=== PATIENT | male | born 1950 | race Caucasian/White ===

== ENCOUNTER 2019-05-12 19:50 | Emergency (ER) | payer MEDICARE, SELFPAY ==
[2019-05-12 19:51] VITALS: BP 180/84; PULSE 79; RESP 18; TEMP 36.9; O2SAT 98; BMI 30.1
--- NOTE | 2019-05-12 19:51 | XR_ITS ---
WS: [id number] Right ankle, 2 views, 05/12/2019 Clinical Data: injury Comparison: None. Findings: There is a bimalleolar fracture. There is lateral dislocation of the talus from the tibia. There is n o significant soft tissue swelling. The oblique fracture of the right distal fibula extends from the distal fibula to the level of the ankle mortise. There is an avulsion fracture of the medial malleolu s. XR/XR ankle RT 2V 10322 Impression: Dislocated bimalleolar fracture of the right ankle.
--- NOTE | 2019-05-12 19:51 | W.ED.LOWEXIN ---
HPI - Extremity Injury (Lower) General: Chief Complaint: Extremity Injury, Lower Stated Complaint: POSSIBLE BROKEN ANKLE Time Seen by Provider: 05/12/19 19:51 Source: patient Mode of arrival: ambulatory Limitations: no limitations History of Present Illness: HPI Narrative: Patient was stepping down off a horse and twisted his right ankle injuring it. Patient said he felt a pop in the ankle itself. No obvious deformity is noted. Pulses are intact to the feet. Good cap refill is noted. An abrasion is noted to the medial aspect of the anterior right ankle. Patient denies any chronic medical problems. Patient reports no routine medications. Patient denies smoking, alcohol, or drug usage. Review of Systems General: Reports: 10 or more systems reviewed and unremarkable except in HPI and below Musc: Reports: joint pain (right ankle) PFSH ED PFSH: Social History Smoking and tobacco status: never smoked Physical Exam Const: COMMON NORMALS: no apparent distress and oriented x3 GENERAL APPEARANCE: cooperative HENMT: COMMON NORMALS: normocephalic, external ears normal, EAC's normal, TM's normal bilaterally and external nose normal HEAD & SCALP: normal to inspection and normocephalic FACE & SINUS: normal facial exam NOSE: external nose normal GENERAL EAR: hearing not grossly impaired EXTERNAL EAR: Yes external ears normal EXTERNAL AUDITORY CANAL: EAC's normal TYMPANIC MEMBRANE: TM's normal bilaterally MOUTH: oral and palatal mucosa normal THROAT: posterior oropharynx normal Eye: COMMON NORMALS: PERRL and EOMs intact bilaterally PUPIL: Yes PERRL Neck/C-Spine: COMMON NORMALS: full ROM and no lymphadenopathy Lymph: LYMPHATIC: no lymphedema noted Chest: COMMONS NORMALS: inspection of chest normal and palpation of chest normal Resp: COMMON NORMALS: normal respiratory effort and clear to auscultation bilaterally AUSCULTATION: clear to auscultation bilaterally Cardio: COMMON NORMALS: regular rate and regular rhythm RATE: regular rate RHYTHM: regular rhythm GI: COMMON NORMALS: normal to inspection, nondistended, normoactive bowel sounds and non-tender : COMMON NORMALS: Yes no CVA tenderness BLADDER/KIDNEY EXAM: Yes no CVA tenderness Back/Pelvis: COMMON NORMALS: no CVA tenderness and thoracic and lumbar spine normal to inspection Extremity: NARRATIVE EXTREMITY EXAM: Mild swelling to the right ankle. An abrasion is noted to the medial aspect of the anterior right ankle area. No obvious ecchymosis at this time. Pulses are intact on the dorsalis pedis and the tibialis, no obvious deformity, prompt capillary refill and good tendon function. GENERAL: Yes edema Neuro: COMMON NORMALS: oriented x3, moves all extremities and no focal motor deficits Psych: COMMON NORMALS: mental status grossly normal and cooperative Skin: COMMON NORMALS: no rashes or lesions noted GENERAL SKIN EXAM: no rashes or lesions noted Course ED course: 2014, reviewed with who agreed with assessment of fracture on xray, recommended splint and follow-up with orthopedics in out patient. wjw 2100, splint applied by myself and nurse. PML splint, cap refill intact, xray ordered for evaluation. wjw Vital Signs: Vital signs: Vital Signs Temperature 98.5 F 05/12/19 19:51 Pulse Rate 82 05/12/19 20:00 Respiratory Rate 18 05/12/19 19:51 Blood Pressure 180/84 05/12/19 19:51 Pulse Oximetry 98 05/12/19 19:51 MDM - Extremity Injury (Lower) MDM Narrative: Medical decision making narrative: Patient comes in today with complaints of injury to the right ankle. Exam notes tenderness to the ankle with decreased range of motion due to pain. Prompt capillary refill is noted distally and good pedal pulses are noted. No pain is noted in the right knee or in the proximal lower leg. Differential diagnosis includes fracture, sprain, contusion. X-ray noted bimalleolar fracture of the right ankle. Reviewed exam with Dr. Aguilar who recommended splinting and follow-up with orthopedics. Patient was placed in a posterior, medial, lateral splint with improvement in pain and discomfort. Post splint application noted good cap refill. Patient will be placed nonweightbearing with crutches. Patient was written prescriptions for pain and case management recommendation was put in for the computer follow-up. Patient reports understanding of care plan and need for follow-up. Discharge Plan Discharge Patient Disposition: Home, Self-Care Clinical Impression: Ankle fracture Qualifiers: Encounter type: initial encounter Fracture type: closed Laterality: right Qualified Code(s): S82.891A - Other fracture of right lower leg, initial encounter for closed fracture Condition: Stable Prescriptions: New hydrocodone-acetaminophen 5-325 mg tablet 1 tab PO Q6H PRN (Reason: pain (scale score 7-10)) Qty: 20 RF: 0 No Action No Known Home Medications RF: 0 Discharge Orders: Discharge Order (Routine); Ordered 05/12/19 Ordered By: David Isaac Discharge Diet: Usual diet Discharge Activity: Increase activity as tolerated Patient Instructions: Ankle Fracture (ED) Activity Restrictions/Additional Instructions: No weight bearing to extremity Use crutches for ambulation Use acetaminophen and ibuprofen as needed to control pain Case management will contact you with follow-up appointment for orthopedics Return to ER for uncontrolled pain, fever or new concerns Follow-up with primary care in one week if needed Coding Level of Care Code ED Public Information Coordinator for [place] Fwd Exam Comprehensive
[2019-05-12 20:00] VITALS: PULSE 82
[2019-05-12] MEDS: HYDROcodone-acetaminophen 7.5-325 mg Tablet 1 TAB PO (20:16)
--- NOTE | 2019-05-12 21:09 | XR_ITS ---
WS: [id number] Right ankle, 2 views, 05/12/2019 2112 hours, Clinical Data: post splint application Comparison: Right ankle, 05/12/2019, 2019 hours. Findings: A fiberglass splint has been placed about the right ankle. The dislocated bimalleolar fracture is sti ll noted. The talus remains dislocated laterally from the tibia. XR/XR ankle RT 2V 48435 Impression: Splinting of bimalleolar fracture of the right ankle.
[2019-05-12 22:16] VITALS: BP 136/84; PULSE 110; RESP 18; O2SAT 96
--- NOTE | 2019-05-12 22:31 | PC.NURSE ---
Rn reviewed and agrees with assessment.
--- NOTE | 2019-05-13 11:04 | DCPLANNER ---
configuration manager had message to schedule a follow up appointment for patient with ortho. configuration manager called the ortho clinic, spoke with Pat, gave clinic patients information. configuration manager was told that patients information would be printed and reviewed. Clinic will call case management rn and patient with appointment information.
--- NOTE | 2019-05-17 08:00 | DCPLANNER ---
Patient has an appointment scheduled for Friday, May 17, [address] at 8:[address] Craven. Clinic will call patient with appointment information.
--- NOTE | 2019-07-05 15:46 | DCPLANNER ---
Patient did attend appointment scheduled for 05.17.19 with ortho.
== END 2019-05-12 22:16 | disposition home or self-care (01) ==
PROVIDERS: Emergency Provider Nurse Practitioner Family
DX: S82.841A Displaced bimalleolar fracture of right lower leg, initial encounter for closed fracture (principal); X50.1XXA Overexertion from prolonged static or awkward postures, initial encounter; Y93.52 Activity, horseback riding
CPT/HCPCS: 12345; 29515; 73600; 99281; 99283; E0114

== ENCOUNTER → 2019-05-17 08:42 | Outpatient (BNVA) | payer MEDICARE, SELFPAY | PROVIDERS: Referring Provider Nurse Practitioner Family; Visit Provider Specialist | DX: S82.851A Displaced trimalleolar fracture of right lower leg, initial encounter for closed fracture (principal); S92.354A Nondisplaced fracture of fifth metatarsal bone, right foot, initial encounter for closed fracture; X58.XXXA Exposure to other specified factors, initial encounter | CPT/HCPCS: 73610 ==

== ENCOUNTER 2019-05-17 12:10 | Day surgery (SDC) | payer MEDICARE, SELFPAY ==
[2019-05-17] VITALS (17 sets, daily range): BP systolic 122–180; BP diastolic 62–91; PULSE 62–84; RESP 16–22; TEMP 36.4–37.1; O2SAT 94–100; BMI 30.1
--- NOTE | 2019-05-17 | SCC_ITS ---
Procedure Done: Open reduction internal fixation right trimalleolar ankle fracture 156.7 seconds of fluoroscopic guidance, for a cumulative dose of 3.87 mGy, was provided to Dr. Craven by the radiology department. C-arm images of the RIGHT ankle were saved for the patient's permanent record. [facility]
--- NOTE | 2019-05-17 | XR_ITS ---
WS: [id number] C-ARM RADIOGRAPHS RIGHT ANKLE; 4 IMAGES HISTORY: OR PICS COMPARISON: 05/17/2019 Interval placement of plate and screws stabilizing the distal fibular fracture in good alignment. Ove rlying katy. Two stabilize a medial malleolus fracture in good alignment. Posterior avulsion fracture from the tib ia is in normal alignment. On the lateral image there is an avulsion fractures of the anterior tibial plafond. Continued mild widening of the medial ankle mortise. XR/XR ankle RT 2V 64411 IMPRESSION: 1. Status post bimalleolar orthopedic fixation with fractures now in normal al ignment. 2. Nondisplaced, nonfixated posterior malleolus fracture. 3. Anterior avulsion fracture from the tibial plafond. 4. Mild widening of the medial ankle mortise. 5. Normal alignment at the tibiotalar articulation.
--- NOTE | 2019-05-17 10:38 | P.ANESASSM_ITS ---
Pre-Anesthetic Assessment Pre-Anesthetic Assessment: Height/Weight: Height 1.78 m Proposed Procedure: Operation Date: 05/17/19 12:50 Proposed Procedures p ORIF RIGHT TRIMALLEOLAR FRACTURE Ankle 07407/S82.851A(Right) - Diamond Craven MD Social: Social History: No alcohol and No tobacco Exam: Pre-Anes Outpt Exam: alert, oriented x 3, clear to auscultation bilaterally and regular rate & rhythm Airway: Submandibular: WNL Cervical ROM: Other (limited) MP: 2 Dentition: Other (teeth ok) History/ROS: No significant history except as noted Pulmonary: Pulmonary: None reported CV/HEM: CV/HEM: CAD : : None reported Hepatic: Hepatic: None reported GI: GI: None reported Metabolic: Metabolic: Hyperlipidemia Musc/skel: Musc/skel: None reported Neuropsych: Neuropsych: None reported Anesthetic Plan: ASA status: 3E Anesthesia: Anesthesia Evaluation and General Risk of > 500 ml blood loss (7ml/kg in children): No PFSH Anesthesia PFSH: Social History Smoking and tobacco status: never smoked Alcohol intake: never Data Anesthesia CBC & Chem 7: 05/17/19 12:26 05/17/19 12:26 Cardiac Studies: 2 No Data to Display
--- NOTE | 2019-05-17 11:56 | ECG_ITS ---
Measurements Intervals [place] Rate: 64 P: 50 NE: 162 QRS: 22 QRSD: 94 T: 36 QT: 406 QTc: 420 SINUS RHYTHM POSSIBLE LEFT ATRIAL ENLARGEMENT [-0.1mV P WAVE IN V1/V2] No previous ECG available for comparison Electronically Signed On 05-17-2019 19:24:44 CDT by Ry Lynne M.D. [email or web address]
[2019-05-17] MEDS: sodium chloride 0.9% 1,000 ML 30 ML IV (12:25)
[2019-05-17] MEDS: CELEcoxib 200 mg Capsule 400 MG PO (12:32)
[2019-05-17 12:54] LABS: Basophils % 0.2 %; Eosinophils # 0.2 10^3/uL (0.0-0.8); Eosinophils % 2.4 %; Hematocrit 48.5 % (42.0-52.0); Hemoglobin 16.3 g/dL (11.7-16.6); Lymphocytes # 1.5 10^3/uL (0.8-4.8); Lymphocytes % 17.6 %; Mean Corpuscular HGB Conc 33.6 g/dL (30.0-36.0); Mean Corpuscular Hemoglobin 30.7 pg (28.0-34.0); Mean Corpuscular Volume 91.3 fL (80-94); Mean Platelet Volume 10.2 fL (7.4-10.4); Monocytes # 0.5 10^3/uL (0.2-0.9); Monocytes % 5.7 %; Neutrophils # 6.4 10^3/uL (1.8-7.7); Neutrophils % 73.5 %; Nucleated Red Blood Cells % 0 %; Platelet Count 268 10^3/cmm (130-400); Red Blood Count 5.31 10^6/uL (4.1-5.3); Red Cell Distribution Width 12.2 % (12.1-15.1); White Blood Count 8.7 10^3/uL (4.0-10.0)
[2019-05-17 13:23] LABS: Alanine Aminotransferase 36 U/L (0-41); Albumin Level 4.6 g/dL (3.5-5.2); Alkaline Phosphatase 95 IU/L (40-130); Anion Gap 18.3 (5-19); Aspartate Amino Transferase 32 U/L (0-40); Blood Urea Nitrogen 19 mg/dL (8-23); Calcium 9.9 mg/dL (8.5-10.5); Carbon Dioxide 25 mmol/L (22-29); Chloride 101 mmol/L (98-107); Globulin 2.6 g/dL (1.3-4.6); Glucose 121 mg/dL (65-115); Osmolality Calculated 288 mOsm/kg (285-295); Potassium 4.3 mmol/L (3.5-5.1); Sodium 140 mmol/L (136-145); Total Bilirubin 0.9 mg/dL (0.15-1.2); Total Protein 7.2 g/dL (6.6-8.7)
--- NOTE | 2019-05-17 14:08 | W.PM.OPSUD ---
Surgery/Procedure H&P Update DATE OF PROCEDURE: May 17, 2019 DATE H&P PERFORMED: 05/17/19 H&P UPDATE INFORMATION: I have examined patient prior to procedure, No changes to prior documentation and H&P is in [facility] EMR on date indicated PREOP DIAGNOSIS: Right trimalleolar ankle fracture PLANNED PROCEDURE: Operation Date: 05/17/19 12:50 Proposed Procedures p ORIF RIGHT TRIMALLEOLAR FRACTURE Ankle 66005/S82.851A(Right) - Diamond Craven MD
[2019-05-17] MEDS: ceFAZolin 1,000 mg SDV 1000 MG IRRIGATION (15:23)
[2019-05-17] MEDS: silvasorb gel 44.4 mL 1 APPLIC TOPICAL (16:16)
[2019-05-17] MEDS: morphine 4 mg/mL SDV 1 mL 2 MG IVP ×2 (16:54→16:57)
--- NOTE | 2019-05-17 17:12 | ANES.PROC ---
Anesthesia Procedures Procedure/Date: 05/17/19 Nerve Block ^: Nerve Block 1: Main Anesthesia: general anesthesia Time Out Performed: Yes Consent: requested by attending/covering physician, risks and benefits reviewed and patient agrees to proceed Nerve block location: popliteal (right) Anesthesia monitors applied: pulse oximetry, EKG, BP cuff and oxygen Nerve block position: lateral (Left) Anesthetic Used: ropivicaine 0.5% Amount of anesthesia used (mL): 30 Nerve Stimulator Used?: Yes Interscalene/Femoral BLK: 4 stimuplex 21 g needle used for position and inplane approach, visualize local anesthetic spread and no vascular puncture identified Injection: neg aspiration of heme Patient Tolerated Procedure: well and no complications Complications: none
--- NOTE | 2019-05-17 17:23 | SUR.PHASEI ---
6426 PT TO PACU AWAKE ALERT TALKATIVE DISTAL TOES PINK WARM CAP REFILL LESS THAN 3 SECONDS
[2019-05-17] MEDS: ondansetron 2 mg/ML SDV 2 mL 4 MG IVP (17:25)
--- NOTE | 2019-05-17 17:27 | SUR.PHASEI ---
1654 PT RATES RT ANKLE PAIN AT 7-8 PT RECENTLY RECIEVED 100 OF [place] IN OR SEE MORPHINE GIVEN PER DR COBIAN REQUEST 1657 SEE PAIN MED REPEATED PT ON LT SIDE AND PREPPED FOR RT ADDUCTOR CANNAL BLOCK ORDERED BY DR COBIAN 1700 BLOCK STARTED TIME OUT COMPLETED BY DR COBIAN AND MYSELF , OTHER RN ASSISTING ABBY 1711 BLOCK TO RT LEG COMPETED PT ALERT TALKATIVE STATES PAIN IS UNCHANGED BUT BP MUCH LOWER AND PT FACE RELAXED FACE SCALE 1
--- NOTE | 2019-05-17 17:42 | SUR.PHASEI ---
1730 PAIN MEDS NOT REPEATED PT SLEEPS IF NOT DISTURBED BP MUCH LOWER, PT FACE SCALE 1-2 PT OK WITH TAKING PO PAIN MED IN OPS REPORT AT BEDSIDE TO ABBY NUNEZ.
[2019-05-17] MEDS: HYDROcodone-acetaminophen 5-325 mg Tablet 1 TAB PO (18:50)
--- NOTE | 2019-05-17 19:53 | PM.OP ---
Operative Report Date of procedure: May 17, 2019 Pre-op Diagnosis: Right trimalleolar ankle fracture, displaced and subluxed Post-op diagnosis: same Post-op Findings: Same Procedure Done: Open reduction internal fixation right trimalleolar ankle fracture utilizing the [place] 6 hole lateral fibular plate and 2 medial cannulated screws Specimens removed/disposition: None Pathology: none sent Surgeon: Diamond Craven Wood Floor Layer: [facility] OR technicians Anesthesia: General (Intubated) Estimated blood loss (mL): 5 Tourniquet time (min): 84 (at 250 mmHg) IV fluids (mL): 1,000 Urine output (mL): 0 Urine output: No Ribeiro Complications: None Condition: stable Disposition: same day (PACU then home) Brief History: This 69-year-old gentleman was in his usual state of health when he stepped awkwardly from a halflinger horse suffering the above injury. He was seen in the emergency department. Attempted reduction was accomplished, but there was still some subluxation of the fracture. He was referred to our office and seen for the first time today with the referral being received in the office yesterday. Risks and complications of surgery were discussed with the patient. He understood and consented to proceed with the intervention as recommended. Procedure: Patient was seen in the preoperative holding area and leg was marked. Patient was brought to the operating theater and placed on the operating room table. After undergoing adequate general intubated anesthesia, the patient's right lower extremity was prepped and draped in usual fashion utilizing DuraPrep. The leg was draped free. Fluoroscopy was used throughout the surgical procedure. We did have a tourniquet high on the right lower extremity. This was elevated to 250 mmHg and total tourniquet time was 84 minutes. Tourniquet elevation followed exsanguination of the leg. A surgical pause was performed. At the time of the surgical pause we identified the site and side of surgery as well as the patient's identity and availability of equipment. We also confirmed appropriate administration of IV antibiotics. Of note, there was a very large fracture blister medially proximal to the medial malleolus. This was approximately 6 inches x 4 inches in size. This was unroofed, drained, and a Tegaderm was placed on the fracture blister base throughout the surgical procedure. At the end of the surgical procedure, we placed silver sorb and 4 x 4's over this area. Following the above, an incision was made centering over the patient's distal fibula fracture. The incision was continued proximally distally as necessary to allow access to the fracture. We were able to reduce the fracture anatomically. The [place] 6-hole lateral fibular distal plate was fitted and attached with standard technique. We used a combination of locking as well nonlocking screws. Once the plate was appropriately attached, we irrigated the wound. We then closed the wound with 2-0 Monocryl in the subcutaneous tissues, and the skin was closed with skin katy. Attention was then directed to the medial aspect of the ankle with care being taken to avoid the area of the fracture blister. Once again, we used fluoroscopy to determine the appropriate level of the incision as well as palpation over the fracture. An incision was made over the site of the fracture. We were then able to reduce the fracture. Two guidewires were placed in appropriate position as visualized in AP and lateral planes. We were then able to place cannulated screws, which were 40 mm and 50 mm in length, over the guidewires to hold the medial malleolus nicely reduced. Throughout the surgical procedure and at the conclusion of the procedure we did use fluoroscopy. Fluoroscopy was utilized to determine appropriate positioning of the plate as well as the fractures. At the conclusion we did obtain AP and lateral images demonstrating the fracture was anatomically reduced. The medial incision was closed with 2-0 Monocryl in the subcutaneous tissues. The skin was then closed with skin katy. Sterile dressing was placed consisting of Xeroform gauze, 4 x 4's, sterile soft roll and an Jaime wrap in addition to the previously noted silver sorb and 4 x 4 dressing over the traumatized skin under the fracture blister. The patient was placed in a Cam Walker boot and is to remain nonweightbearing. The procedure was well tolerated without complication. Tourniquet time was 84 minutes at 250 mmHg. The patient will be discharged home to follow-up in my office as scheduled.
== END 2019-05-17 19:22 | disposition home or self-care (01) ==
PROVIDERS: Visit Provider Specialist
PROC: (CPT 27822; principal; 2019-05-17 12:30)
DX: S82.851A Displaced trimalleolar fracture of right lower leg, initial encounter for closed fracture (principal); X50.1XXA Overexertion from prolonged static or awkward postures, initial encounter; Z82.49 Family history of ischemic heart disease and other diseases of the circulatory system; I25.10 Atherosclerotic heart disease of native coronary artery without angina pectoris; E78.5 Hyperlipidemia, unspecified; S92.354A Nondisplaced fracture of fifth metatarsal bone, right foot, initial encounter for closed fracture; X58.XXXA Exposure to other specified factors, initial encounter
CPT/HCPCS: 27822; 12345; 73600; 73610; 76000; 80053; 85025; 93005; 96365; C1713; J0131; J0360; J0690; J1100; J2001; J2270; J2405; J2704; J2710; J2795; J3010; J3490; J7030

== ENCOUNTER → 2019-05-24 11:47 | Outpatient (BNVA) | payer MEDICARE, SELFPAY | PROVIDERS: Visit Provider Specialist | DX: Z48.89 Encounter for other specified surgical aftercare (principal); S82.51XA Displaced fracture of medial malleolus of right tibia, initial encounter for closed fracture; S82.831A Other fracture of upper and lower end of right fibula, initial encounter for closed fracture; S82.201A Unspecified fracture of shaft of right tibia, initial encounter for closed fracture; X58.XXXA Exposure to other specified factors, initial encounter | CPT/HCPCS: 73610 ==

== ENCOUNTER → 2019-06-06 09:33 | Outpatient (BNVA) | payer MEDICARE, SELFPAY | PROVIDERS: Visit Provider Specialist | DX: Z48.89 Encounter for other specified surgical aftercare (principal) | CPT/HCPCS: 73610; 73630 ==

== ENCOUNTER 2019-06-07 11:05 | Day surgery (SDC) | payer MEDICARE, SELFPAY ==
[2019-06-06 15:37] VITALS: BMI 30.1
[2019-06-07] VITALS (11 sets, daily range): BP systolic 161–187; BP diastolic 81–97; PULSE 66–76; RESP 14–18; TEMP 36.6–37.3; O2SAT 90–100
--- NOTE | 2019-06-07 | SCC_ITS ---
Procedure Done: Removal of screws x2 from the lateral fibular plate with manipulation of right ankle syndesmosis and reduction. Placement of Arthrex tight rope syndesmotic anchors x2. 160.3 seconds of fluoroscopic guidance, for a cumulative dose of 4.58 mGy, was provided to Dr. Craven by the radiology department. C-arm images of the RIGHT ankle were saved for the patient's permanent record. GREG
[2019-06-07 12:01] LABS: Add Urine Microscopic? NO
[2019-06-07] MEDS: CELEcoxib 200 mg Capsule 400 MG PO (12:01)
[2019-06-07 12:04] LABS: Basophils % 0.2 %; Eosinophils # 0.2 10^3/uL (0.0-0.8); Eosinophils % 2.8 %; Hematocrit 49.4 % (42.0-52.0); Hemoglobin 16.9 g/dL (11.7-16.6); Lymphocytes # 1.8 10^3/uL (0.8-4.8); Lymphocytes % 21.7 %; Mean Corpuscular HGB Conc 34.2 g/dL (30.0-36.0); Mean Corpuscular Volume 87.7 fL (80-94); Mean Platelet Volume 10.2 fL (7.4-10.4); Monocytes # 0.4 10^3/uL (0.2-0.9); Monocytes % 5.1 %; Neutrophils # 5.8 10^3/uL (1.8-7.7); Nucleated Red Blood Cells % 0 %; Platelet Count 265 10^3/cmm (130-400); Red Blood Count 5.63 10^6/uL (4.1-5.3); White Blood Count 8.3 10^3/uL (4.0-10.0)
[2019-06-07] MEDS: sodium chloride 0.9% 1,000 ML 30 ML IV (12:07)
--- NOTE | 2019-06-07 12:11 | ANES.PREANE2 ---
Pre-Anesthetic Assessment Pre-Anesthetic Assessment: Height/Weight: Height 1.78 m Weight 95.254 kg Temp Pulse Resp BP Pulse Ox 99.2 F 67 18 164/82 97 06/07/19 11:54 06/07/19 11:54 06/07/19 11:54 06/07/19 11:54 06/07/19 11:54 Preop Diagnosis: Right syndesmotic disruption with trimalleolar ankle fracture Proposed Procedure: Operation Date: 06/07/19 13:00 Proposed Procedures p Syndosmosis Fixation with medial hardware removal with possible reinsertion of hardware of right ankle. 24226,36230 S82.851A, Z48.89(Right) - Diamond Craven MD Last intake: Intake Last Liquid Date 06/06/19 Last Liquid Time 22:00 Last Solid Date 06/06/19 Last Solid Time 18:00 Social: Social History: No alcohol and No tobacco Exam: Pre-Anes Outpt Exam: alert, oriented x 3, clear to auscultation bilaterally and regular rate & rhythm Airway: Submandibular: WNL Cervical ROM: WNL (limited) and Other (mildly limited) MP: 2 Dentition: Other (teeth ok) History/ROS: No significant history except as noted Pulmonary: Pulmonary: None reported CV/HEM: CV/HEM: CAD (CABG 2002 ) and HTN : : None reported Hepatic: Hepatic: None reported GI: GI: None reported Metabolic: Metabolic: Hyperlipidemia Musc/skel: Musc/skel: None reported Neuropsych: Neuropsych: None reported Anesthetic Plan: ASA status: 3 Anesthesia: Anesthesia Evaluation and General Risk of > 500 ml blood loss (7ml/kg in children): No Meds/Allergies Current Medications: Current Medications Generic Name Dose Route Start Last Admin Trade Name Freq PRN Reason Stop Dose Admin Sodium Chloride 1,000 mls @ 30 ml s/hr 06/07/19 07:30 06/07/19 12:07 Sodium Chloride 0.9% IV 06/08/19 07:29 30 mls/hr .Q24H CONCEPCION Administration PFSH Anesthesia PFSH: Surgical History History of surgery on upper extremity Hx of heart bypass surgery Family History Mother CAD (coronary artery disease) Denies family history of Diabetes Lung disease Hypertension Stroke Social History Smoking and tobacco status: never smoked Alcohol intake: never Data Anesthesia CBC & Chem 7: 06/07/19 11:40 Other Labs: Laboratory Results - last 48 hr 06/07/19 11:40 WBC 8.3 RBC 5.63 H Hgb 16.9 H Hct 49.4 MCV 87.7 MCH 30.0 MCHC 34.2 RDW 12.0 L Plt Count 265 MPV 10.2 Neut % (Auto) 70.0 Lymph % (Auto) 21.7 [place] % (Auto) 5.1 Eos % (Auto) 2.8 Baso % (Auto) 0.2 Neut # (Auto) 5.8 Lymph # (Auto) 1.8 [place] # (Auto) 0.4 Eos # (Auto) 0.2 Baso # (Auto) 0.0 Nucleated RBC % (auto) 0 Nucleated RBCs # 0.0 Cardiac Studies: No Data to Display
[2019-06-07 12:22] LABS: Bilirubin Urine Neg (NEGATIVE); Blood Urine Neg (Negative); Glucose Urine UA Norm (Normal); Ketones Urine Negative (Negative); Leukocyte Esterase Urine Negative (Negative); Nitrate Urine Negative (Negative); Protein Urine Neg (Negative); Urine Appearance Clear (CLEAR); Urine Color Yellow (Yellow); Urobilinogen Urine Norm (Negative)
--- NOTE | 2019-06-07 13:15 | W.PM.OPSUD ---
Surgery/Procedure H&P Update DATE OF PROCEDURE: June 07, 2019 DATE H&P PERFORMED: 06/06/19 H&P UPDATE INFORMATION: H&P is in [facility] EMR on date indicated PREOP DIAGNOSIS: Right syndesmotic disruption with trimalleolar ankle fracture PLANNED PROCEDURE: Operation Date: 06/07/19 13:00 Proposed Procedures p Syndosmosis Fixation with medial hardware removal with possible reinsertion of hardware of right ankle. 04961,76607 S82.851A, Z48.89(Right) - Diamond Craven MD
[2019-06-07] MEDS: ceFAZolin 1,000 mg SDV 1000 MG IRRIGATION (14:03)
--- NOTE | 2019-06-07 14:42 | SUR.OPER ---
29801 - Pt's Richelle updated on surgery progress and pt status.
--- NOTE | 2019-06-07 15:17 | XR_ITS ---
WS: [id number] INTRAOPERATIVE TECHNIQUE: 9 Spot fluoroscopic images for intraoperative purposes. FLUOROSCOPY TIME: 160.3 seconds seconds CLINICAL INFORMATION: OR PICS COMPARISON: None. FINDINGS: Intraoperative changes syndesmotic anterior placement across the tibial plafond. XR/XR ankle RT min 3V* [id number] IMPRESSION: Images obtained for intraoperative purposes.
[2019-06-07] MEDS: fentaNYL 50 mcg/mL INJ 2mL 100 MCG IVP (15:25)
--- NOTE | 2019-06-07 15:30 | PM.OP ---
Operative Report Date of procedure: June 07, 2019 Pre-op Diagnosis: Right syndesmotic disruption with widening following open reduction internal fixation trimalleolar ankle fracture Post-op diagnosis: same Procedure Done: Removal of screws x2 from the lateral fibular plate with manipulation of right ankle syndesmosis and reduction. Placement of Arthrex tight rope syndesmotic anchors x2. Pathology: none sent Surgeon: Diamond Craven Catering Staff Member: [facility] OR technicians Anesthesia: General (Intubated, ASA 3) Estimated blood loss (mL): 25 Tourniquet time: 0 IV fluids (mL): 1,000 Urine output: 0 mL, no Ribeiro Complications: None Findings: Widening with mortise widening which was correctable with manipulation. Medial headless screws were not removed during the surgical procedure. Condition: stable Disposition: PACU (Then discharged to home with family) Brief History: This 69-year-old gentleman presented to the office initially at the end of April. The patient underwent open reduction internal fixation of his right trimalleolar fracture on May 16, however, we were not able to place a syndesmotic tight rope secondary to significant issues with the medial aspect of the patient's ankle. There was a very large fracture blister and the skin was noted to be quite tenuous. Therefore, we expected to have to place syndesmotic fixation with plans to reevaluate the mortise upon follow-up. When the patient was seen in the office, he was found to have syndesmotic and mortise widening. Procedure: Patient was seen in the preoperative holding area and leg was marked. Patient was brought to the operating theater and placed on the operating room table. After undergoing adequate general intubated anesthesia, the patient's right lower extremity was prepped and draped in usual fashion utilizing DuraPrep. The leg was draped free. Fluoroscopy was used throughout the surgical procedure. We did have a tourniquet high on the right lower extremity, but this was not elevated. A surgical pause was performed. At the time of the surgical pause we identified the site and side of surgery as well as the patient's identity and availability of equipment. We also confirmed appropriate administration of IV antibiotics, Anceg 2g. An incision was made centering over the patient's fibular plate with location of the 2 screws which would allow us to place the syndesmotic fixation through the plate being localized via fluoroscopy. Evaluation demonstrated that we were able to reduce the syndesmosis without removal of the medial hardware. Therefore this was left in place. Standard technique was used to place 2 Arthrex tight rope wires under fluoroscopic guidance. These were placed with the syndesmotic area and mortise being held reduced. This did require small incisions medially. At the conclusion we obtained AP and lateral images demonstrating the ecchymosis was reduced. The lateral incision was closed with 2-0 Monocryl in the subcutaneous tissues followed by katy. The medial 2 small incisions were closed with just a staple. Sterile dressing was placed consisting of Exofin, Telfa, 4 x 4's, sterile soft roll and an Jamie wrap. The patient was placed into a sugar tong and posterior fiberglass splint and is to remain nonweightbearing. The procedure was well tolerated without complication. The patient will be discharged home to follow-up in my office as scheduled.
[2019-06-07] MEDS: oxyCODONE-APAP 5-325 mg Tablet 1 TAB PO (15:53)
[2019-06-07] MEDS: morphine 4 mg/mL SDV 1 mL 2 MG IVP ×2 (16:13→16:19)
--- NOTE | 2019-06-07 16:24 | SUR.PHASEI ---
1525 pt now c/o of PAIN OF 9 SEE MED GIVEN ORDERED SLOW PUSH IN PACU, 1540 PT AWAKES EASILY STATES PAIN IS BETTER THEN BACK TO SLEEP FACE SCALE 3 REPORT TO OPS PT TO OPS DRESSING D/I DISTAL TOES PINK WARM CAP REFILL LESS THAN 3 SECONDS.
== END 2019-06-07 17:15 | disposition home or self-care (01) ==
PROVIDERS: Visit Provider Specialist
PROC: (CPT 20680; principal; 2019-06-07 13:00)
PROC: (CPT 20680; 2019-06-07 13:00)
DX: S82.851A Displaced trimalleolar fracture of right lower leg, initial encounter for closed fracture (principal); X58.XXXA Exposure to other specified factors, initial encounter; Z82.49 Family history of ischemic heart disease and other diseases of the circulatory system; I25.10 Atherosclerotic heart disease of native coronary artery without angina pectoris; I10 Essential (primary) hypertension; E78.5 Hyperlipidemia, unspecified
CPT/HCPCS: 20680; 27829; 12345; 36415; 73610; 76000; 81003; 85025; 96365; 96374; 96375; J0131; J0330; J0690; J1100; J2001; J2250; J2270; J2405; J2704; J2765; J3010; J3490; J7030

== ENCOUNTER → 2019-06-23 08:12 | Outpatient (BNVA) | payer MEDICARE, SELFPAY | PROVIDERS: Visit Provider Specialist | DX: S93.431A Sprain of tibiofibular ligament of right ankle, initial encounter (principal); S82.851A Displaced trimalleolar fracture of right lower leg, initial encounter for closed fracture | CPT/HCPCS: 73610 ==

== ENCOUNTER 2019-06-23 11:54 | Outpatient (CLI) | payer MEDICARE, SELFPAY | END 2019-06-23 11:55 | disposition home or self-care (01) | LOC: SPT 11:55 | PROVIDERS: Visit Provider Specialist | DX: Z46.89 Encounter for fitting and adjustment of other specified devices (principal); S82.851D Displaced trimalleolar fracture of right lower leg, subsequent encounter for closed fracture with routine healing; X58.XXXD Exposure to other specified factors, subsequent encounter; S93.431A Sprain of tibiofibular ligament of right ankle, initial encounter; S82.851A Displaced trimalleolar fracture of right lower leg, initial encounter for closed fracture | CPT/HCPCS: 73610; L4361 ==

== ENCOUNTER → 2019-07-06 09:05 | Outpatient (BNVA) | payer MEDICARE, SELFPAY | PROVIDERS: Visit Provider Specialist | DX: S93.431A Sprain of tibiofibular ligament of right ankle, initial encounter (principal); S82.851A Displaced trimalleolar fracture of right lower leg, initial encounter for closed fracture; X58.XXXA Exposure to other specified factors, initial encounter | CPT/HCPCS: 73610 ==

== ENCOUNTER → 2019-08-03 09:30 | Outpatient (BNVA) | payer MEDICARE, SELFPAY | PROVIDERS: Visit Provider Specialist | DX: S82.851D Displaced trimalleolar fracture of right lower leg, subsequent encounter for closed fracture with routine healing (principal); Z98.890 Other specified postprocedural states; X50.1XXD Overexertion from prolonged static or awkward postures, subsequent encounter | CPT/HCPCS: 73610 ==

== ENCOUNTER 2019-08-03 13:50 | Outpatient (CLI) | payer MEDICARE, SELFPAY | END 2019-08-03 13:51 | disposition home or self-care (01) | LOC: SPT 13:51 | PROVIDERS: Visit Provider Specialist | DX: Z46.89 Encounter for fitting and adjustment of other specified devices (principal); S82.851D Displaced trimalleolar fracture of right lower leg, subsequent encounter for closed fracture with routine healing; X58.XXXD Exposure to other specified factors, subsequent encounter; Z98.890 Other specified postprocedural states; X50.1XXD Overexertion from prolonged static or awkward postures, subsequent encounter | CPT/HCPCS: 73610; 97760; L1902 ==

== ENCOUNTER → 2019-09-01 09:21 | Outpatient (BNVA) | payer MEDICARE, SELFPAY | PROVIDERS: Visit Provider Specialist | DX: S93.431D Sprain of tibiofibular ligament of right ankle, subsequent encounter; S82.851D Displaced trimalleolar fracture of right lower leg, subsequent encounter for closed fracture with routine healing; S92.354D Nondisplaced fracture of fifth metatarsal bone, right foot, subsequent encounter for fracture with routine healing; X50.1XXD Overexertion from prolonged static or awkward postures, subsequent encounter | CPT/HCPCS: 73610 ==